=== PATIENT | female | born 1995 | race African-American/Black ===

== ENCOUNTER 2018-09-22 16:54 | Emergency (ER) | payer SELFPAY ==
[~2018-09-22] VITALS: Ht 165.1 cm; Wt 72.7 kg
[2018-09-22 16:57] VITALS: TEMP 98.3
[2018-09-22 17:49] LABS: BASO % 0.1 % (0.0-2.0); EOS % 0.1 % (0-4.0); GRAN # 4.8 (1.4-6.5); GRAN % 68.7 % (42.2-75.2); HEMATOCRIT 42.3 % (37.0-47.0); HEMOGLOBIN 13.4 g/dl (12.5-16.0); LYMPH # 1.6 (1.2-3.4); LYMPH % 22.9 % (20.0-51.0); MEAN CELL VOLUME 85 fl (80.0-100.0); MEAN CORPUSCULAR HEMOGLOBIN 27 pg (27.0-31.0); MEAN CORPUSCULAR HGB CONC 32 g/dl (33.0-37.0); MEAN PLATELET VOLUME 10.8 fl (7.4-10.4); MONO # 0.6 (0.1-0.6); MONO % 8.1 % (1.7-9.3); PLATELET COUNT 186 K/mm3 (130-400); RED BLOOD COUNT 4.96 M/mm3 (4.10-5.30); REDCELL DISTRIBUTION WIDTH-CV 13.5 % (11.5-14.5)
[2018-09-22 17:58] LABS: ALANINE AMINOTRANSFERASE 11 U/L (9-52); ALBUMIN 4.5 gm/dL (3.5-5.0); ALKALINE PHOSPHATASE 61 U/L (50-136); ANION GAP 9 mmol/L (7-16); AST,SGOT 23 U/L (15-37); BILIRUBIN,TOTAL 0.4 mg/dL (0.0-1.0); BLOOD UREA NITROGEN 15 mg/dL (7-17); CARBON DIOXIDE 32 mmol/L (22-30); CHLORIDE 97 mmol/L (98-107); CREATININE, serum 0.74 (0.52-1.25); GLUCOSE 83 mg/dL (74-106); POTASSIUM 3.9 mmol/L (3.4-5.0); SODIUM 138 mmol/L (137-145); TOTAL PROTEIN 8.6 gm/dL (6.4-8.2); URIC ACID 5.8 mg/dL (2.5-6.2)
[2018-09-22 18:01] LABS: C-REACTIVE PROTEIN < 0.5 mg/dL (0.0-0.9)
[2018-09-22 18:09] LABS: ERYTHROCYTE SEDIMENTATION RATE 9 mm/hr (0-20)
[2018-09-22] MEDS ORDERED: NEURONTIN300 MG/CAP PO (19:06)
[2018-09-22] MEDS ORDERED: NAPROSYN500 MG PO (19:32)
[2018-09-22 19:46] VITALS: BP 156/102; PULSE 100
== END 2018-09-22 19:46 | disposition home or self-care (01) ==
LOC: COL.ER 16:54
PROVIDERS: Emergency Medicine
DX: M79.672 Pain in left foot (principal)
CPT/HCPCS: J1885

== ENCOUNTER 2019-10-02 12:09 | Emergency (ER) | payer SELFPAY ==
[~2019-10-02] VITALS: Ht 165.1 cm; Wt 75.0 kg
[~2019-10-02 12:09] MED LIST: NAPROSYN500 MG PO; NEURONTIN300 MG/CAP PO
[2019-10-02 12:12] VITALS: TEMP 98.8
[2019-10-02] MEDS ORDERED: SEROQUEL 200MG200 MG PO (12:17)
[2019-10-02] MEDS ORDERED: DESYREL 100MG100 MG PO (12:18)
[2019-10-02] MEDS ORDERED: RISPERDAL 1M1 MG/TAB PO (12:19)
[2019-10-02 13:53] LABS: BASO % 0.2 % (0.0-2.0); EOS # 0.1 (0.0-0.7); GRAN % 64.6 % (42.2-75.2); HEMATOCRIT 39.8 % (37.0-47.0); HEMOGLOBIN 12.3 g/dl (12.5-16.0); LYMPH # 1.6 (1.2-3.4); LYMPH % 25.5 % (20.0-51.0); MEAN CELL VOLUME 85 fl (80.0-100.0); MEAN CORPUSCULAR HEMOGLOBIN 26 pg (27.0-31.0); MEAN CORPUSCULAR HGB CONC 31 g/dl (33.0-37.0); MEAN PLATELET VOLUME 11.4 fl (7.4-10.4); MONO # 0.5 (0.1-0.6); MONO % 8.4 % (1.7-9.3); PLATELET COUNT 195 K/mm3 (130-400); RED BLOOD COUNT 4.67 M/mm3 (4.10-5.30)
[2019-10-02 14:03] LABS: ALBUMIN 4.4 gm/dL (3.5-5.0); BILIRUBIN,TOTAL 0.2 mg/dL (0.0-1.0); CALCIUM 9.8 mg/dL (8.4-10.2); CREATININE, serum 0.65 (0.52-1.25)
[2019-10-02 14:33] LABS: THYROID STIMULATING HORMONE 1.31 uIU/mL (0.465-4.680)
[2019-10-02] MEDS ORDERED: FLAGYL500 MG PO (14:42)
[2019-10-02] MEDS ORDERED: ZOFRAN 4MG T4 MG/TAB PO (14:53)
[2019-10-02 15:04] VITALS: BP 134/78; PULSE 78
== END 2019-10-02 15:04 | disposition home or self-care (01) ==
LOC: COL.ER 12:09
PROVIDERS: Nurse Practitioner Primary Care
DX: A08.4 Viral intestinal infection, unspecified (principal); A59.01 Trichomonal vulvovaginitis; G47.00 Insomnia, unspecified; F41.9 Anxiety disorder, unspecified; Z87.891 Personal history of nicotine dependence
CPT/HCPCS: J2405; J7120

== ENCOUNTER 2019-11-11 15:27 | Emergency (ER) | payer SELFPAY ==
[~2019-11-11] VITALS: Ht 165.1 cm; Wt 77.3 kg
[~2019-11-11 15:27] MED LIST changes: +DESYREL 100MG100 MG PO; +FLAGYL500 MG PO; +RISPERDAL 1M1 MG/TAB PO; +SEROQUEL 200MG200 MG PO; +ZOFRAN 4MG T4 MG/TAB PO
[2019-11-11 15:41] VITALS: TEMP 97.7
[2019-11-11 16:15] LABS: COLLECTION METHOD CLEAN CATCH
[2019-11-11 16:22] LABS: MUCOUS Present /lpf; PH 6 (5-8); URINE APPEARANCE Hazy; URINE BACTERIA Rare /hpf; URINE BILIRUBIN Negative (NEGATIVE); URINE BLOOD Negative (NEGATIVE); URINE COLOR Yellow; URINE GLUCOSE Negative (NEGATIVE); URINE KETONE Negative (NEGATIVE); URINE LEUKOCYTE ESTERASE 3+ (NEGATIVE); URINE NITRATE Negative (NEGATIVE); URINE PROTEIN(semi-quant) Negative (NEGATIVE); URINE UROBILINOGEN Negative (NEGATIVE)
[2019-11-11] MEDS ORDERED: FLAGYL500 MG PO (17:13)
[2019-11-11 17:20] VITALS: BP 129/73; PULSE 94
== END 2019-11-11 17:20 | disposition home or self-care (01) ==
LOC: COL.ER 15:27
PROVIDERS: Nurse Practitioner Primary Care
DX: A59.01 Trichomonal vulvovaginitis (principal); F31.9 Bipolar disorder, unspecified; F20.9 Schizophrenia, unspecified; F41.9 Anxiety disorder, unspecified

== ENCOUNTER 2020-12-22 15:35 | Emergency (ER) | payer SELFPAY ==
[~2020-12-22] VITALS: Ht 165.1 cm; Wt 79.5 kg
[2020-12-22 15:58] VITALS: BP 146/97; PULSE 91; TEMP 98.5
[2020-12-30] MEDS ORDERED: CEPHALEXIN500 M1 PO (13:32)
== END 2020-12-22 17:15 | disposition left against medical advice (07) ==
LOC: COL.ER 15:35
DX: N63.20 Unspecified lump in the left breast, unspecified quadrant (principal)

== ENCOUNTER 2020-12-29 17:10 | Emergency (ER) | payer SELFPAY ==
[~2020-12-29] VITALS: Ht 165.1 cm; Wt 77.3 kg
[2020-12-29 17:20] VITALS: TEMP 98.6
[2020-12-29] MEDS ORDERED: STRATTERA60 MG PO (17:25)
[2020-12-29] MEDS ORDERED: MINIPRESS 1M1 MG/CAP PO (17:27)
[2020-12-29] MEDS ORDERED: CEPHALEXIN500 M1 PO ×2 (17:40)
[2020-12-29 17:57] VITALS: BP 147/105; PULSE 97
[2020-12-30] MEDS ORDERED: CEPHALEXIN500 M1 PO (13:32)
== END 2020-12-29 18:01 | disposition home or self-care (01) ==
LOC: COL.ER 17:10
DX: N61.0 Mastitis without abscess (principal); I10 Essential (primary) hypertension; Z79.899 Other long term (current) drug therapy
CPT/HCPCS: J0696

== ENCOUNTER 2021-01-02 12:07 | Emergency (ER) | payer SELFPAY ==
[~2021-01-02] VITALS: Ht 165.1 cm; Wt 77.3 kg
[~2021-01-02 12:07] MED LIST changes: +CEPHALEXIN500 M1 PO; +MINIPRESS 1M1 MG/CAP PO; +STRATTERA60 MG PO
[2021-01-02 12:16] VITALS: TEMP 98.2
[2021-01-02] MEDS ORDERED: MINIPRESS2 MG PO (12:19)
[2021-01-02] MEDS ORDERED: STRATTERA 10MG10 MG PO (12:19)
[2021-01-02] MEDS ORDERED: CLEOCIN HCL300 MG PO (13:28)
[2021-01-02 14:09] VITALS: BP 148/90; PULSE 86
== END 2021-01-02 14:15 | disposition home or self-care (01) ==
LOC: COL.ER 12:07
DX: N61.1 Abscess of the breast and nipple (principal); N61.0 Mastitis without abscess; Z32.02 Encounter for pregnancy test, result negative